=== PATIENT | male | born 1935 | race Caucasian/White ===

== ENCOUNTER → 2019-02-24 | Outpatient (CLI) | payer OTHER ==
[~2019-02-24] VITALS: Ht 177.8 cm; Wt 72.6 kg
[~2019-02-24] MED LIST: ARICEPT 5 MG TAB5 MG PO; ASPIR 8181 MG PO; LEXAPRO 10 MG T10 M1 PO; LIVALO1 MG PO; MOBIC15 MG PO; PLAVIX 75 MG TA75 M1 PO; PRILOSEC OTC20 MG PO; SINEMET 25-2501 EAC1 PO; TRAZODONE 150150 M1 PO
[2019-02-24 11:45] LABS: HEMATOCRIT 34.9 % (42.0-52.0); HEMOGLOBIN 11.7 gm/dL (14.0-18.0); MCH 30.7 pg (26.0-34.0); MCHC 33.7 g/dL (28.0-37.0); MCV 91.2 fL (80.0-100.0); RBC 3.83 mil/uL (4.50-6.00); RDW 14.1 % (10.5-14.5); WBC 7.3 thou/uL (4.0-11.0)
[2019-02-24 11:55] LABS: CALCIUM 9.4 mg/dL (8.5-10.1); CREATININE 1.5 mg/dL (0.7-1.3); POTASSIUM 4.7 mmol/L (3.5-5.1)
--- NOTE | 2019-02-26 17:13 | CATHLAB ---
[facility] [address] [place] [address] INVASIVE PROCEDURE REPORT Name: JASSON GOTTI Room #: REG COLEMAN Buckner#: [id number] ������������� Admission: 02/24/19 ������������� Attend Phys: Nick Bai, Discharge: ��� ������������� ��� Date of : 31 Date of Service: 02/26/19 1712 �� Report #: [id number] �������� ��������������������������������������������[id number] THIS REPORT FOR: //name// APPROVED REPORT Study performed: 02/24/2019 12:38:51 Patient Details Patient Status: Out-Patient Room #: The patient is a 84 year-old male Event Personnel Nick Bai Well Puller, Bernice CortesR, Bakari Miller Roberta Monitor, Glenny Pina RN gaming host Performed Art Access - R femoral artery* Chad Access - R femoral vein Right and Left Heart Cath w/or w/o Coronarie [id number] [facility] Renal Bilateral Peripheral Angiography [id number] CVRENALBIL Hemostasis with Manual pressure Hemostasis w/ Mynx 69051 Initial Mod Sed Same Phys/QHP Gr5y [id number] 22120 Mod Sed Same Phys/QHP Ea [id number] Indication Chest pain Procedure Narrative The Right Groin^ was infiltrated with subcutaneous anesthesia. A Right Heart Catheterization was performed with a 7 Fr. Caraway-Tania catheter and pressure were recorded. Cardiac outputs were obtained by the Thermal Dilution method. A PINNACLE 6FR Sheath #[id number] sheath was inserted into the RFA 6F^. Coronary angiography was performed using coronary diagnostic catheters. The right coronary system was accessed and visualized with a JR4 catheter. The left coronary system was accessed and visualized with a JL4 catheter. The left ventricle was accessed and visualized with a STR PIG catheter. Left ventriculogram was performed in 30 degree projection. Closure device was deployed with a 6 Fr MYNX CONTROL 6F/7F #[id number]. Hemostasis was obtained with manual pressure following sheath removal without any complications. There was no hematoma. MANUAL PRESSURE FOR THE VENOUS SHEATH. Intraoperative Conscious Sedation Sedation start time: 1316 Case end Time: 1425 [facility] [address] [place] [address] INVASIVE PROCEDURE REPORT Name: SHENJASSONMARCELLA BEST Room #: REG Sita#: [id number] ������������� Admission: 02/24/19 ������������� Attend Phys: Nick Bai, Discharge: ��� ������������� ��� Date of : 31 Date of Service: 02/26/19 1712 �� Report #: [id number] �������� ��������������������������������������������[id number] Fentanyl 25 mcg Versed 0.5 mg Fluoro Time: 7.15 minutes Dose: DAP 8988.10 cGycm2 644 mGy Contrast Type and Amount: Visipaque 105 ml Hemodynamics The right atrial mean pressure is 10 mmHg. The right ventricular pressure is 41/4 mmHg. The pulmonary artery pressure is 38/28 mmHg with a mean of 23 mmHg. The mean pulmonary capillary wedge pressure is 22/23 mmHg. 15 The aortic pressure is 167/42 mmHg with a mean of 56 mmHg. The left ventricular pressure is 174/4 mmHg with a mean of mmHg. The left ventricular end diastolic pressure is 22 mmHg. The cardiac output using thermo method is 4.95 L/min. The cardiac index using thermo method is 2.60 L/min/m2. PCI Technique Lesion Percutaneous coronary intervention was performed on the Common iliac. PCI Technique Lesion 2 Percutaneous Coronary Intervention was performed on the Unspecified. Conclusion #1 successful right heart catheterization with cardiac output by thermodilution see above hemodynamics. #2 normal left ventricular size and LV function lower limits of normal EF 50% range #3 large left main mildly calcified free of disease giving rise to LAD and circumflex #4 LAD is moderately calcified proximal third. Moderate disease 30 and 40% irregularities no occlusive disease this extends around the apex with mild irregularity #5 circumflex OM dominant vessel no significant occlusive disease #6 RCA appears to be nondominant cannot excluded distal branch was occluded but no significant wall motion abnormality and no indication for intervention #7 selective injection of right ostial renal artery is a 50-60% ostial lesion. 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 Dr. Galvez of interventional radiology did place a successful self-expanding stent without any complication or sequelae in the right external iliac or [address] [address] INVASIVE PROCEDURE REPORT Name: JASSON GOTTI Room #: REG COLEMAN Buckner#: [id number] ������������� Admission: 02/24/19 ������������� Attend Phys: Nick Bai, Discharge: ��� ������������� ��� Date of : 31 Date of Service: 02/26/19 1712 �� Report #: [id number] �������� ��������������������������������������������[id number] distal common femoral region. Will continue to re-coronary anatomy aggressively no indication for intervention. False positive reading noted on nuclear stress test ��������������������������������������������� <ELECTRONICALLY SIGNED> ���������������������������������������� By: Nick Bai MD, FACC ��������������������������������������������� 02/26/191711 11 11 Nick Bai MD, FACC /INF
== END | disposition home or self-care (01) ==
LOC: CATH 10:59
PROVIDERS: Internal Medicine Cardiovascular Disease
DX: R07.9 Chest pain, unspecified (principal); I25.10 Atherosclerotic heart disease of native coronary artery without angina pectoris; I70.211 Atherosclerosis of native arteries of extremities with intermittent claudication, right leg; I10 Essential (primary) hypertension; E78.00 Pure hypercholesterolemia, unspecified; E78.5 Hyperlipidemia, unspecified; G20 Parkinson's disease; Z98.890 Other specified postprocedural states; Z79.899 Other long term (current) drug therapy; Z88.0 Allergy status to penicillin; Z79.82 Long term (current) use of aspirin